=== PATIENT | female | born 1980 | race Caucasian/White ===

== ENCOUNTER → 2019-03-05 | Outpatient (CLI) | payer OTHER ==
[2019-03-10 10:11] LABS: QUANTIFERON+, Nil Value 0.05 IU/mL; QUANTIFERON+,Mitogen Value >10.00 IU/mL; QUANTIFERON+,TB2 Antigen Value 0.22 IU/mL; QUANTIFERON, TB GOLD PLUS Negative (Negative)
== END | disposition home or self-care (01) ==
LOC: LABPV 07:36
PROVIDERS: ATTEND Pediatrics
DX: Z02.89 Encounter for other administrative examinations (principal)
CPT/HCPCS: 86480; 86592; 87591